=== PATIENT | female | born 1955 | race Caucasian/White ===

== ENCOUNTER 2016-12-25 22:50 | Observation (INO) | payer OTHER ==
--- NOTE | 2016-12-25 22:52 | PDOC ---
History of Present Illness - General Chief Complaint: Pain, Acute Stated Complaint: SLIPPED INJURING LEFT UPPER ARM Time Seen by Provider: 12/25/16 22:51 History Source: Patient Exam Limitations: No Limitations - History of Present Illness Initial Comments: 12/25/16 22:52 This is a 61-year-old female brought in by EMS for evaluation post slip and fall on a wet floor. Patient is complaining of pain in her left upper arm. Patient also hit her upper teeth on the edge of a table and knocked the cap off of one of her front teeth. Patient otherwise said she did not hit her head, did not pass out. Patient denies any other injury. Patient denies any chest pain or difficulty breathing. Patient denies any abdominal or pelvic pain. Patient denies any other extremity pain. Patient denies any neck pain. PAST MEDICAL HISTORY: no significant history PAST SURGICAL HISTORY: no significant history FAMILY HISTORY: no pertinant history SOCIAL HISTORY: Pt lives with family and is employed. Patient is visiting from the [place] and is due to go home in approximately 1 week MEDICATIONS: reviewed ALLERGIES: As per nursing notes Review of Systems General: No fevers or chills, no weakness, no weight loss HEENT: No change in vision. No sore throat,. No ear pain, tooth injury CardioVascular: No chest pain or shortness of breath Respiratory:No cough, or wheezing. Gastrointestinal: no nausea, vomitting, diarrhea or constipation, No rectal bleeding Genitourinary: No dysuria, hematuria, or frequency Musculoskeletal: Left arm pain Neurologic: No headache, vertigo, dizziness or loss of consciousness Psychiatric: nor depression Skin: No rashes or easy bruising Endocrine: no increased thirst or abnormal weight change Allergic: no skin or latex allergy All other systems reviewed and normal GENERAL: The patient is awake, alert, and fully oriented, in no acute distress. HEAD: Normal with no signs of trauma. EYES: Pupils equal, round and reactive to light, extraocular movements intact, sclera anicteric, conjunctiva clear. EXTREMITIES: Left upper extremity there is swelling, ecchymosis, deformity and dislocation of the head of the humerus. Neurovascular distal is intact. NEUROLOGICAL: Normal speech, normal gait. PSYCH: Normal mood, normal affect. SKIN: Warm, Dry, normal turgor, no rashes or lesions noted. 12/26/16 00:37 X-ray comminuted fracture with dislocation of the head of humerus Assessment and plan: This is a 61-year-old female who comes in status post fall with fracture dislocation of the head of the humerus. Discussed with Dr. Gomez orthopedics on-call who said patient will need admission and surgery. Patient will be admitted to medicine for clearance with Dr. Gomez surgery consult Past History - Past Medical History Allergies/Adverse Reactions: Allergies Allergy/AdvReac Type Severity Reaction Status Date / Time No Known Allergies Allergy Verified 12/25/16 22:54 Home Medications: Ambulatory Orders Acetaminophen [Tylenol .Regular Strength -] 650 mg PO Q4H PRN #0 tablet Oxycodone HCl/Acetaminophen [Percocet 5-325 mg Tablet] 1 tab PO Q6H #20 tablet MDD 4 12/26/16 - Psycho/Social/Smoking Cessation Hx Anxiety: No Suicidal Ideation: No Smoking History: Never smoked Have you smoked in the past 12 months: No Hx Alcohol Use: No Drug/Substance Use Hx: No Substance Use Type: None ED Treatment Course - LABORATORY CBC & Chemistry Diagram: 12/26/16 06:00 12/26/16 06:00 *DC/Admit/Observation/Transfer Diagnosis at time of Disposition: Shoulder dislocation Qualifiers: Encounter type: initial encounter Laterality: left Qualified Code(s): S43.005A - Unspecified dislocation of left shoulder joint, initial encounter Humeral head fracture Qualifiers: Encounter type: initial encounter Fracture type: closed Laterality: left Qualified Code(s): S42.292A - Other displaced fracture of upper end of left humerus, initial encounter for closed fracture - Discharge Dispostion Condition at time of disposition: Improved Admit: Yes - Prescriptions
[2016-12-25] MEDS ORDERED: HYDROmorphone HCL CARPU-JECT 1 MG/1 ML DISP.SYRIN IVPUSH ONE (23:31)
[2016-12-25] MEDS ORDERED: HYDROmorphone HCL CARPU-JECT 1 MG/1 ML DISP.SYRIN ONE (23:41)
[2016-12-26 00:23] LABS: BASOPHIL 0.4 % (0-2.0); EOSINOPHIL 0.3 % (0-4.5); MCH 31.7 pg (25.7-33.7); MCHC 34.5 g/dl (32.0-36.0); MEAN PLT VOLUME 10.2 fl (7.5-11.1); NEUTROPHILS 81.3 % (42.8-82.8); PLATELET COUNT 209 K/MM3 (134-434); WHITE BLOOD COUNT 10.5 K/mm3 (4.0-10.0)
[2016-12-26] MEDS ORDERED: morphine CARPU-JECT 4 MG/1 ML DISP.SYRIN ONE ×2 (00:26→00:53)
[2016-12-26] MEDS: morphine CARPU-JECT 4 MG/1 ML DISP.SYRIN IVPUSH ONE ×4 (00:31→07:34)
[2016-12-26 00:45] LABS: ALBUMIN 3.8 g/dl (3.4-5.0); ANION GAP 12 (8-16); BILIRUBIN,TOTAL 0.6 mg/dL (0.2-1.0); CALCIUM 8.7 mg/dL (8.5-10.1); CO2 25 mmol/L (21-32); CREATININE 0.9 mg/dL (0.55-1.02); GLUCOSE,RANDOM 231 mg/dL (74-106); SGOT/AST 23 U/L (15-37); SGPT/ALT 30 U/L (12-78); TOT PROT 7.1 g/dl (6.4-8.2)
[2016-12-26 00:46] LABS: ALK PHOS 105 U/L (45-117)
[2016-12-26 01:48] VITALS: TEMP 98.2; BMI 32.5
[2016-12-26] MEDS ORDERED: morphine CARPU-JECT 2 MG/1 ML DISP.SYRIN IVPUSH PRN ×2 (02:25→04:05)
[2016-12-26 02:50] LABS: INR 0.95 (0.82-1.09); PROTHROMBIN TIME (PATIENT) 10.4 SEC (9.98-11.88)
[2016-12-26 02:52] LABS: ACTIVATED PTT 21.3 SECONDS (26.9-34.4)
[2016-12-26] MEDS ORDERED: morphine CARPU-JECT 2 MG/1 ML DISP.SYRIN ONE ×2 (03:44→04:08)
[2016-12-26] MEDS ORDERED: HYDROmorphone HCL CARPU-JECT 1 MG/1 ML DISP.SYRIN IVPUSH ONE (04:49)
[2016-12-26 06:40] LABS: MCH 32.2 pg (25.7-33.7); MCHC 34.9 g/dl (32.0-36.0); MEAN CELL VOLUME 92.1 fl (80-96); MEAN PLT VOLUME 9.5 fl (7.5-11.1); PLATELET COUNT 188 K/MM3 (134-434); RDW 13.2 % (11.6-15.6)
--- NOTE | 2016-12-26 07:10 | HP ---
CHIEF COMPLAINT: left shoulder pain PCP: Dr Portillo HISTORY OF PRESENT ILLNESS: Patient is a 61 y/o female with no significant past medical history. She reports ambulating yesterday at home, slipped on her hard wood floor and fell onto her left shoulder. Patient reports strking her face on a coffee table during the fall. She reports remembering the full incident in detail and denies any loss of consciousness. Patient reports pain to the left shoulder and she denies any paresthesia to the extremity. ER course was notable for: (1) xray of left shoulder comminuted left humeral head fracture with anterior dislocation (2) ekg sinus tachycardia, normal axis (3) chest xray, no infilitrates or effusions noted, bilateral bibasilar athelactasis noted. Recent Travel: none PAST MEDICAL HISTORY: none PAST SURGICAL HISTORY: choleystectomy and appendectomy Social History: employed resides at home with partner Smoking: none Alcohol: social Drugs: none Family History: non contributory to this admission Allergies No Known Allergies Allergy (Verified 12/25/16 22:54) HOME MEDICATIONS: Home Medications Medication Instructions Recorded Naproxen [Naprosyn -] 500 mg PO BID PRN #20 tablet 12/12/15 Oxycodone HCl/Acetaminophen 1 tab PO Q6H PRN #20 tablet MDD 4 12/12/15 [Percocet 5-325 mg Tablet] Tamsulosin HCl [Flomax] 0.4 mg PO DAILY #7 cap.er.24h 12/14/15 REVIEW OF SYSTEMS CONSTITUTIONAL: Absent: fever, chills, diaphoresis, generalized weakness, malaise, loss of appetite, weight change HEENT: Absent: rhinorrhea, nasal congestion, throat pain, throat swelling, difficulty swallowing, mouth swelling, ear pain, eye pain, visual changes CARDIOVASCULAR: Absent: chest pain, syncope, palpitations, irregular heart rate, lightheadedness , peripheral edema RESPIRATORY: Absent: cough, shortness of breath, dyspnea with exertion, orthopnea, wheezing, stridor, hemoptysis GASTROINTESTINAL: Absent: abdominal pain, abdominal distension, nausea, vomiting, diarrhea, constipation, melena, hematochezia GENITOURINARY: Absent: dysuria, frequency, urgency, hesitancy, hematuria, flank pain, genital pain MUSCULOSKELETAL: Present: left shoulder pain Absent: myalgia, arthralgia, joint swelling, back pain, neck pain SKIN: Absent: rash, itching, pallor HEMATOLOGIC/IMMUNOLOGIC: Absent: easy bleeding, easy bruising, lymphadenopathy, frequent infections ENDOCRINE: Absent: unexplained weight gain, unexplained weight loss, heat intolerance, cold intolerance NEUROLOGIC: Absent: headache, focal weakness or paresthesias, dizziness, unsteady gait, seizure, mental status changes, bladder or bowel incontinence PSYCHIATRIC: Absent: anxiety, depression, suicidal or homicidal ideation, hallucinations. PHYSICAL EXAMINATION Vital Signs - 24 hr 12/26/16 12/26/16 12/26/16 03:44 04:45 05:05 Pulse Rate [ 106 H 109 H 108 H Left Radial] Respiratory 20 20 Rate Blood Pressure 142/91 157/87 160/81 [Left] O2 Sat by Pulse 96 96 Oximetry (%) 12/26/16 12/26/16 05:49 06:37 Pulse Rate [ 108 H 104 H Left Radial] Respiratory 18 16 Rate Blood Pressure 152/91 147/86 [Left] O2 Sat by Pulse 96 94 L Oximetry (%) GENERAL: Awake, alert, and fully oriented, in no acute distress. HEAD: Normal with no signs of trauma. EYES: Pupils equal, round and reactive to light, extraocular movements intact, sclera anicteric, conjunctiva clear. No lid lag. EARS, NOSE, THROAT: Ears normal, nares patent, oropharynx clear without exudates. Moist mucous membranes. NECK: Normal range of motion, supple without lymphadenopathy, JVD, or masses. LUNGS: Breath sounds equal, clear to auscultation bilaterally. No wheezes, and no crackles. No accessory muscle use. HEART: Regular rate and rhythm, normal S1 and S2 without murmur, rub or gallop. ABDOMEN: Soft, nontender, not distended, normoactive bowel sounds, no guarding, no rebound, no masses. No hepatomegaly or splenomegaly. MUSCULOSKELETAL: Normal range of motion at all joints. No bony deformities or tenderness. No CVA tenderness. UPPER EXTREMITIES: 2+ pulses, warm, well-perfused. No cyanosis. No clubbing. No peripheral edema. + deformity with displacement of left humerus, less than 3 second capillary refill, + 3 radial pulse LOWER EXTREMITIES: 2+ pulses, warm, well-perfused. No calf tenderness. No peripheral edema. NEUROLOGICAL: Cranial nerves II-XII intact. Normal speech. Normal gait. PSYCHIATRIC: Cooperative. Good eye contact. Appropriate mood and affect. SKIN: Warm, dry, normal turgor, no rashes or lesions noted, normal capillary refill. Laboratory Results - last 24 hr 12/26/16 06:00 WBC 8.0 RBC 4.41 Hgb 14.2 Hct 40.6 MCV 92.1 MCH 32.2 MCHC 34.9 RDW 13.2 Plt Count 188 MPV 9.5 ASSESSMENT/PLAN: 1) s/p mechanical fall w/left humaral head fracture and anterior displacement - keep npo until pt is evaluated by orthopedist - prn pain medication - q2 hours neurovascular checks - appreciate the input of orthopedist (Jason) f/e/n - NPO-->IVF - replete electrolytes prn ppx - defer ac pt may require surgical intervention - pepcid - oob - scd pt is medically optimized for surgery dispo: pt requires inpatient admission Visit type - Emergency Visit Emergency Visit: Yes ED Registration Date: 12/26/16 Care time: The patient presented to the Emergency Department on the above date and was hospitalized for further evaluation of their emergent condition. - New Patient This patient is new to me today: Yes Date on this admission: 12/26/16 - Critical Care Critical Care patient: No
[2016-12-26 07:22] LABS: ANION GAP 11 (8-16); CO2 26 mmol/L (21-32); CREATININE 0.6 mg/dL (0.55-1.02); GLUCOSE,RANDOM 190 mg/dL (74-106)
[2016-12-26] MEDS ORDERED: HYDROmorphone HCL CARPU-JECT 1 MG/1 ML DISP.SYRIN IVPB ONE (07:26)
[2016-12-26] MEDS ORDERED: ACETAMINOPHEN 1000 MG/100 ML VIAL (NON FORMULARY) IVPB ONE (07:29)
[2016-12-26] MEDS ORDERED: SODIUM CHLORIDE 0.45% 1,000 ML IV SCH (07:30)
[2016-12-26] MEDS ORDERED: ACETAMINOPHEN 325 MG TABLET (FP) PO PRN (07:30)
[2016-12-26] MEDS ORDERED: ONDANSETRON 4 MG/2 ML VIAL IVPUSH PRN (07:43)
[2016-12-26] MEDS ORDERED: HYDROmorphone HCL CARPU-JECT 1 MG/1 ML DISP.SYRIN IVPB PRN (07:44)
--- NOTE | 2016-12-26 08:30 | CON.ORTH ---
Consult Reason for Consultation:: left shoulder dislocation/fx - Alcohol/Substance Use Hx Alcohol Use: No - Smoking History Smoking history: Never smoked Have you smoked in the past 12 months: No Home Medications - Allergies Allergies/Adverse Reactions: Allergies Allergy/AdvReac Type Severity Reaction Status Date / Time No Known Allergies Allergy Verified 12/25/16 22:54 - Home Medications Home Medications: Ambulatory Orders NK [No Known Home Medication] 12/26/16 Physical Exam for Ortho Vital Signs: Vital Signs Temperature 98.2 F 12/25/16 23:30 Pulse Rate 104 H 12/26/16 06:37 Respiratory Rate 16 12/26/16 06:37 Blood Pressure 147/86 12/26/16 06:37 O2 Sat by Pulse Oximetry (%) 94 L 12/26/16 06:37 Labs: CBC, BMP 12/26/16 06:00 12/26/16 06:00 INR, PTT INR 0.95 (0.82-1.09) 12/26/16 01:50 - Upper Extremity Shoulder: Yes: Left, Assymetrical, Deformity, Limited ROM, Pain, Swelling, Tenderness, Other (nvi) Imaging - Results X-ray: Report Reviewed, Image Reviewed Assessment/Plan 61-year-old female brought in by EMS for evaluation post slip and fall on a wet floor. Patient is complaining of pain in her left upper arm. Patient also hit her upper teeth on the edge of a table and knocked her Off of one of her teeth. Patient otherwise said she did not hit her head, did not pass out. Patient denies any other injury. Patient denies any chest pain or difficulty breathing. Patient denies any abdominal or pelvic pain. Patient denies any other extremity pain. Patient denies any neck pain. a/p left shoulder anterior dislocation, greater tuberosity fx After consent obtained, an intrarticular injection of 2% lidocaine was given and then conscious sedation was given. A closed reduction was performed post-reduction xrays show GH jt is reduced, pt is nvi Sling applied f/u in the office on Thursday 12/28 d/w Dr. Ayala
[2016-12-26] MEDS ORDERED: MIDAZOLAM HCL 2 MG/2 ML SINGLE DOSE VIAL IVPUSH ONE (08:57)
--- NOTE | 2016-12-26 09:47 | DS ---
Physical Exam: SUBJECTIVE: Patient seen and examined, reports feeling better, pt is s/p left shoulder reduction OBJECTIVE: Vital Signs Period Temp Pulse Resp BP Sys/Adrian Pulse Ox Last 24 Hr 99-109 16-20 142-161/70-91 94-98 PHYSICAL EXAM GENERAL: The patient is awake, alert, and fully oriented, in no acute distress. HEAD: Normal with no signs of trauma. EYES: PERRL, extraocular movements intact, sclera anicteric, conjunctiva clear. ENT: Ears normal, nares patent, oropharynx clear without exudates, moist mucous membranes. NECK: Trachea midline, full range of motion, supple. LUNGS: Breath sounds equal, clear to auscultation bilaterally, no wheezes, no crackles, no accessory muscle use. HEART: Regular rate and rhythm, S1, S2 without murmur, rub or gallop. ABDOMEN: Soft, nontender, nondistended, normoactive bowel sounds, no guarding, no rebound, no hepatosplenomegaly, no masses. EXTREMITIES: 2+ pulses, warm, well-perfused, no edema. NEUROLOGICAL: Cranial nerves II through XII grossly intact. Normal speech, gait not observed. PSYCH: Normal mood, normal affect. SKIN: Warm, dry, normal turgor, no rashes or lesions noted. LABS Laboratory Results - last 24 hr 12/26/16 12/26/16 06:00 06:00 WBC 8.0 RBC 4.41 Hgb 14.2 Hct 40.6 MCV 92.1 MCH 32.2 MCHC 34.9 RDW 13.2 Plt Count 188 MPV 9.5 Sodium 138 Potassium 4.2 Chloride 101 Carbon Dioxide 26 Anion Gap 11 BUN 11 Creatinine 0.6 D Random Glucose 190 H Calcium 9.0 HOSPITAL COURSE: Date of Admission:12/26/16 Date of Discharge: 12/26/16 Minutes to complete discharge: 35 Discharge Summary Reason For Visit: SLIPPED INJURING LEFT UPPER ARM Current Active Problems Humeral head fracture (Acute) Shoulder dislocation (Acute) Condition: Stable - Home Medications Comprehensive Discharge Medication List: Ambulatory Orders NK [No Known Home Medication] 12/26/16
[2016-12-26] MEDS ORDERED: FAMOTIDINE 20 MG/50 ML IVPB 50 ML IVPB SCH (10:00)
[2016-12-26] MEDS ORDERED: TAMSULOSIN HCL 0.4 MG CAP.ER.24H (FP) PO SCH (10:00)
[2016-12-26] MEDS ORDERED: ONDANSETRON *ODT* 4 MG TABLET SL ONE (11:04)
[2016-12-26 11:21] VITALS: BP 144/73; PULSE 94
--- NOTE | 2016-12-26 13:12 | EKG ---
Test Reason : Blood Pressure : / mmHG Vent. Rate : 104 BPM Atrial Rate : 104 BPM P-R Int : 160 ms QRS Dur : 088 ms QT Int : 368 ms P-R-T Axes : 049 019 050 degrees QTc Int : 483 ms SINUS TACHYCARDIA POSSIBLE LEFT ATRIAL ENLARGEMENT NO PREVIOUS ECGS AVAILABLE Confirmed by PB CAMERON MD ([id number] on 12/26/2016 1:12:28 PM Referred By: MD POWERS Confirmed By:PB CAMERON MD
== END 2016-12-26 16:57 | disposition home or self-care (01) ==
LOC: FER 22:50 → UNDOADMOB 12-26 02:19 → FM/S 12-26 02:19 → INTOOBSV 12-26 02:19 → FM/S 12-26 11:21
PROVIDERS: ADMIT Internal Medicine; ATTEND Nurse Practitioner Family
PROC: 0PSDXZZ Reposition Left Humeral Head, External Approach (ICD-10-PCS; principal; 2016-12-26)
PROC: 3E0337Z Introduction of Electrolytic and Water Balance Substance into Peripheral Vein, Percutaneous Approach (ICD-10-PCS; 2016-12-26)
DX: S42.252A Displaced fracture of greater tuberosity of left humerus, initial encounter for closed fracture (principal); W01.190A Fall on same level from slipping, tripping and stumbling with subsequent striking against furniture, initial encounter; Y93.01 Activity, walking, marching and hiking; Y92.009 Unspecified place in unspecified non-institutional (private) residence as the place of occurrence of the external cause; S43.005A Unspecified dislocation of left shoulder joint, initial encounter
CPT/HCPCS: 36415; 71010-TC; 73030-TC-LT; 73060-TC-LT; 80048; 80053; 85025; 85027; 85610; 85730; 86850; 86900; 86901; 93005; 99285-25; G0378